=== PATIENT | female | born 1970 | race Caucasian/White ===

== ENCOUNTER 2016-11-03 21:47 | Emergency (ER) | payer BC ==
[~2016-11-03] VITALS: Ht 188 cm; Wt 102.5 kg
[~2016-11-03 21:47] MED LIST: ALPR0.5T PO; CITA20TA9 PO; CITA40TA12 PO; DOXY100C2 PO; IBUP-1007 PO; IPRA3AMP NEB; LISI-334 PO; PRED50TA PO; PROAIR HFA8.5 GM INH; PROAIR RESPICL90 MCG IH; PROM118S3 PO; PROVENTIL HFA6.7 GM IH
[2016-11-03 23:58] LABS: BASO % 0 % (0-3); EOS % 3 % (0-3); HEMATOCRIT 43.3 % (36.0-47.0); HEMOGLOBIN 14.5 g/dL (12.0-15.5); LYMPH # 2.4 x10^3/uL (1.0-4.8); LYMPH % 24 % (24-48); MEAN CORPUSCULAR HEMOGLOBIN 32 pg (25-35); MEAN CORPUSCULAR HGB CONC 34 g/dL (31-37); MEAN CORPUSCULAR VOLUME 95 fL (79-100); MONO % 10 % (0-9); NEUT % 63 % (31-73); PLATELET COUNT 386 x10^3/uL (140-400); RED BLOOD COUNT 4.55 x10^6/uL (3.50-5.40); RED CELL DISTRIBUTION WIDTH 13.8 % (11.5-14.5); WHITE BLOOD COUNT 10.2 x10^3/uL (4.0-11.0)
[2016-11-04] LABS: BILIRUBIN,URINE NEGATIVE (NEG); GLUCOSE,URINE NEGATIVE (NEG); NITRITE,URINE NEGATIVE (NEG); PH,URINE 7.5; PROTEIN,URINE NEGATIVE (NEG-TRACE); UROBILINOGEN,URINE 0.2 mg/dL (0.2 mg/dL)
[2016-11-04] MEDS ORDERED: FAMOTIDINE 20 MG/2 ML VIAL IVP ONE
[2016-11-04] MEDS ORDERED: ONDANSETRON PF 4 MG/2 ML VIAL. IV ONE
[2016-11-04] MEDS ORDERED: IV NORMAL SALINE 1000ML BAG 1,000 ML IV SCH
[2016-11-04] MEDS ORDERED: FENTANYL PF 100 MCG/2 ML VIAL. IV PRN
[2016-11-04 00:12] LABS: CALCIUM 9.1 mg/dL (8.5-10.1); CREATININE 0.6 mg/dL (0.6-1.0); GFR 107.2; POTASSIUM 3.1 mmol/L (3.5-5.1)
--- NOTE | 2016-11-04 00:16 | PHYS DOC ---
Past Medical History Past Medical History: Asthma, Bronchitis, Depression, Hypertension Past Surgical History: Hysterectomy Additional Past Surgical Histo: fibroid removed with hysterectomy Alcohol Use: Occasionally Drug Use: None Adult General Chief Complaint Chief Complaint: ABDOMINAL PAIN HPI HPI Patient is a 46 year old female who presents with complaint of left upper quadrant abdominal pain. Patient states that she has been noticing pain in her left upper quadrant for several months, however over the past 2 weeks the patient has been having worsening pain. Patient was seen through urgent care and had a CT scan done less than one week ago that included both IV and oral contrast. Patient was told that the CT scan did not show any remarkable findings and the patient's blood work also was unremarkable. Patient states that despite being treated with hydrocodone, her pain has remained persistent. The patient has history of hypertension but denies any other health problems. Patient states that her pain currently is 8 out of 10. Patient states that pain does worsen with eating. Patient states that she has been eating Tums to help with symptoms but states that this does not keep the pain away. Review of Systems Review of Systems Constitutional: Denies fever or chills [] Eyes: Denies change in visual acuity, redness, or eye pain [] HENT: Denies nasal congestion or sore throat [] Respiratory: Denies cough or shortness of breath [] Cardiovascular: No additional information not addressed in HPI [] GI: Abdominal pain, vomiting, denies bloody stools or diarrhea [] : Denies dysuria or hematuria [] Musculoskeletal: Denies back pain or joint pain [] Integument: Denies rash or skin lesions [] Neurologic: Denies headache, focal weakness or sensory changes [] Endocrine: Denies polyuria or polydipsia [] Current Medications Current Medications Current Medications Medications (Trade) Dose Ordered Sig/Yifan Start Time Stop Time Status Last Admin Dose Admin Famotidine (Pepcid) 20 mg 1X ONCE 11/04/16 00:00 11/04/16 00:01 DC 11/04/16 00:44 20 MG Fentanyl Citrate 50 mcg 50 mcg PRN Q15MIN PRN 11/04/16 00:00 11/04/16 23:59 11/04/16 00:43 50 MCG Ondansetron HCl (Zofran) 4 mg 1X ONCE 11/04/16 00:00 11/04/16 00:01 DC 11/04/16 00:44 4 MG Potassium Chloride (Klor-Con) 40 meq 1X ONCE 11/04/16 01:30 11/04/16 01:31 Sodium Chloride (Iv Sodium Chloride 0.9% 1000ml Bag) 1,000 ml @ 1,000 mls/hr Q1H 11/04/16 00:00 11/04/16 00:59 DC 11/04/16 00:43 1,000 MLS/HR Allergies Allergies Allergies Coded Allergies Type Severity Reaction Last Updated Verified codeine Allergy Severe Anaphylaxis 10/27/13 Yes iopanoic acid Allergy Severe Anaphylaxis 10/27/13 Yes verapamil Allergy Severe waddell 04/12/16 Yes bacitracin Allergy Intermediate Rash 04/12/16 Yes bacitracin zinc Allergy Intermediate Rash 04/12/16 Yes levofloxacin Allergy Intermediate 04/12/16 Yes neomycin sulfate Allergy Intermediate Rash 04/12/16 Yes polymyxin B Allergy Intermediate Rash 04/12/16 Yes sulfamethoxazole Allergy Intermediate rash 04/12/16 Yes trimethoprim Allergy Intermediate rash 04/12/16 Yes aspirin Allergy Mild pt states "It causes my blood not to thin out" 04/12/16 Yes Physical Exam Physical Exam Constitutional: Alert, afebrile, appears in mild to moderate discomfort. [] HENT: Normocephalic, atraumatic, bilateral external ears normal, oropharynx moist, no oral exudates, nose normal. [] Eyes: PERRLA, EOMI, conjunctiva normal, no discharge. [] Neck: Normal range of motion, no tenderness, supple, no stridor. [] Cardiovascular:Heart rate regular rhythm, no murmur [] Lungs & Thorax: Bilateral breath sounds clear to auscultation [] Abdomen: Bowel sounds normal, soft, left upper quadrant tenderness to palpation with guarding, no rebound tenderness, no masses, no pulsatile masses. [] Skin: Warm, dry, no erythema, no rash. [] Back: No tenderness, no CVA tenderness. [] Extremities: No tenderness, no cyanosis, no clubbing, ROM intact, no edema. [] Neurologic: Alert and oriented X 3, normal motor function, normal sensory function, no focal deficits noted. [] Current Patient Data Vital Signs Vital Signs Date Time Temp Pulse Resp B/P Pulse Ox O2 Delivery O2 Flow Rate FiO2 11/03/16 22:35 98.2 70 20 161/109 99 Room Air 98.2 Lab Values Laboratory Tests Test 11/03/16 23:15 White Blood Count 10.2x10^3/uL (4.0-11.0) Red Blood Count 4.55x10^6/uL (3.50-5.40) Hemoglobin 14.5g/dL (12.0-15.5) Hematocrit 43.3% (36.0-47.0) Mean Corpuscular Volume 95fL (79-100) Mean Corpuscular Hemoglobin 32pg (25-35) Mean Corpuscular Hemoglobin Concent 34g/dL (31-37) Red Cell Distribution Width 13.8% (11.5-14.5) Platelet Count 386x10^3/uL (140-400) Neutrophils (%) (Auto) 63% (31-73) Lymphocytes (%) (Auto) 24% (24-48) Monocytes (%) (Auto) 10% (0-9) H Eosinophils (%) (Auto) 3% (0-3) Basophils (%) (Auto) 0% (0-3) Neutrophils # (Auto) 6.4x10^3uL (1.8-7.7) Lymphocytes # (Auto) 2.4x10^3/uL (1.0-4.8) Monocytes # (Auto) 1.0x10^3/uL (0.0-1.1) Eosinophils # (Auto) 0.3x10^3/uL (0.0-0.7) Basophils # (Auto) 0.0x10^3/uL (0.0-0.2) Urine Collection Type Unknown Urine Color Yellow Urine Clarity Clear Urine pH 7.5 Urine Specific Remlap 1.010 Urine Protein Negativemg/dL (NEG-TRACE) Urine Glucose (UA) Negativemg/dL (NEG) Urine Ketones (Stick) Negativemg/dL (NEG) Urine Blood Negative (NEG) Urine Nitrite Negative (NEG) Urine Bilirubin Negative (NEG) Urine Urobilinogen Dipstick 0.2mg/dL (0.2 mg/dL) Urine Leukocyte Esterase Negative (NEG) Urine RBC 0/HPF (0-2) Urine WBC 0/HPF (0-4) Urine Squamous Epithelial Cells Few/LPF Urine Bacteria 0/HPF (0-FEW) Urine Mucus Slight/LPF Sodium Level 145mmol/L (136-145) Potassium Level 3.1mmol/L (3.5-5.1) L Chloride Level 106mmol/L (98-107) Carbon Dioxide Level 28mmol/L (21-32) Anion Gap 11 (6-14) Blood Urea Nitrogen 12mg/dL (7-20) Creatinine 0.6mg/dL (0.6-1.0) Estimated GFR (Cockcroft-Gault) 107.2 BUN/Creatinine Ratio 20 (6-20) Glucose Level 85mg/dL (70-99) Calcium Level 9.1mg/dL (8.5-10.1) Total Bilirubin 0.5mg/dL (0.2-1.0) Aspartate Amino Transferase (AST) 16U/L (15-37) Alanine Aminotransferase (ALT) 20U/L (14-59) Alkaline Phosphatase 56U/L (46-116) Total Protein 6.8g/dL (6.4-8.2) Albumin 3.8g/dL (3.4-5.0) Albumin/Globulin Ratio 1.3 (1.0-1.7) Lipase 86U/L (73-393) Laboratory Tests 11/03/16 23:15 Laboratory Tests 11/03/16 23:15 EKG EKG Not performed [] Radiology/Procedures Radiology/Procedures Two-view abdominal series interpreted by me: Nonobstructive bowel gas pattern, no free air under the diaphragm [] Course & Med Decision Making Course & Med Decision Making Pertinent Labs and Imaging studies reviewed. (See chart for details) Patient was given IV fluids, fentanyl, and Zofran in the emergency department. On reevaluation, patient's symptoms have improved. Lab work is unremarkable. I suspect that the source of the patient's pain is likely within the stomach and/ or the duodenum. This will require further evaluation by gastroenterology. I have therefore referred the patient to Dr. See for outpatient follow-up as patient may need an EGD scheduled for further evaluation of her pain. Patient was found to have low potassium levels which were replaced in the emergency department with oral potassium. Advised return emergency department for any worsening symptoms. Patient voiced understanding and in agreement with treatment plan. Dragon Disclaimer Dragon Disclaimer This electronic medical record was generated, in whole or in part, using a voice recognition dictation system. Departure Departure Impression: Primary Impression: Abdominal pain Disposition: HOME, SELF-CARE Condition: IMPROVED Referrals: NO PCP (PCP) ELVIRA SEE MD Patient Instructions: Abdominal Pain Additional Instructions: Follow-up with Dr. See in one week for continued evaluation of your abdominal pain. You may need to have an EGD performed to figure out the source of your pain. Return to the emergency department for any worsening symptoms. Scripts Hydrocodone/Apap 5-325 ([place] 5-325 Tablet)1 Each Tablet1-2 Tab PO Q4-6HRS PRN PAIN #20 TAB Prov:PARKER MACIAS MD 11/04/16 Ondansetron (Zofran Odt)4 Mg Tab.rapdis1 Tab SL Q8HRS PRN NAUSEA/VOMITING #15 TAB Prov:PARKER MACIAS MD 11/04/16 Famotidine (Pepcid)20 Mg [id number] Mg PO BID #30 TAB Prov:PARKER MACIAS MD 11/04/16 Problem Qualifiers Primary Impression: Abdominal pain Abdominal location: left upper quadrant Qualified Code: R10.12 - Left upper quadrant pain PARKER MACIAS MD Nov 04, 2016 00:16
[2016-11-04 00:18] LABS: ALBUMIN 3.8 g/dL (3.4-5.0); ALBUMIN/GLOBULIN RATIO 1.3 (1.0-1.7); TOTAL BILIRUBIN 0.5 mg/dL (0.2-1.0); TOTAL PROTEIN 6.8 g/dL (6.4-8.2)
[2016-11-04 00:24] LABS: BACTERIA,URINE 0 /HPF (0-FEW); RBC,URINE 0 /HPF (0-2); SQUAMOUS EPITHELIAL CELL,UR FEW /LPF; WBC,URINE 0 /HPF (0-4)
[2016-11-04 01:15] VITALS: BP 177/97
[2016-11-04] MEDS ORDERED: HYDR-971 PO (01:15)
[2016-11-04] MEDS ORDERED: FAMO-63 PO (01:15)
[2016-11-04] MEDS ORDERED: ONDA4TAB10 SL (01:15)
[2016-11-04] MEDS ORDERED: POTASSIUM CHLORIDE 20 MEQ TABLET.ER. PO ONE (01:30)
--- NOTE | 2016-11-04 07:18 | RAD ---
Abdomen, 2 views, 11/04/2016: History: Left-sided pain Gas is present in scattered loops of bowel in a nonspecific pattern. No free air seen in the abdomen. There is no evidence of organomegaly or abnormal abdominal calcification. IMPRESSION: No acute abdominal abnormality is detected.
== END 2016-11-04 01:54 | disposition home or self-care (01) ==
LOC: ER 21:47
DX: R10.12 Left upper quadrant pain (principal); F32.9 Major depressive disorder, single episode, unspecified; I10 Essential (primary) hypertension; Z90.710 Acquired absence of both cervix and uterus; J45.909 Unspecified asthma, uncomplicated; Z88.5 Allergy status to narcotic agent; Z88.1 Allergy status to other antibiotic agents; Z88.6 Allergy status to analgesic agent; Z88.8 Allergy status to other drugs, medicaments and biological substances
CPT/HCPCS: 36415; 74020; 80053; 81001; 83690; 85027; 96361; 96374; 96375; 99285; J2405; J3010; J7030; S0028

== ENCOUNTER 2016-12-20 23:21 | Emergency (ER) | payer BC ==
[~2016-12-20 23:21] MED LIST changes: +FAMO-63 PO; +HYDR-971 PO; +ONDA4TAB10 SL
== END 2016-12-21 00:29 | disposition left against medical advice (07) ==
LOC: ER 23:21
DX: R51 Headache (principal); M54.2 Cervicalgia; Z53.21 Procedure and treatment not carried out due to patient leaving prior to being seen by health care provider; W10.9XXA Fall (on) (from) unspecified stairs and steps, initial encounter; Y93.89 Activity, other specified; Y92.89 Other specified places as the place of occurrence of the external cause; Y99.8 Other external cause status

== ENCOUNTER 2016-12-26 17:16 | Emergency (ER) | payer BC ==
[~2016-12-26] VITALS: Ht 188 cm; Wt 102.5 kg
[2016-12-26 17:18] VITALS: BP 161/84
[2016-12-26] MEDS ORDERED: PRED20TA PO (17:43)
[2016-12-26] MEDS ORDERED: AZIT250T PO (17:43)
--- NOTE | 2016-12-26 17:44 | PHYS DOC ---
Past Medical History Past Medical History: Asthma, Bronchitis, Depression, Hypertension Past Surgical History: Hysterectomy Additional Past Surgical Histo: fibroid removed with hysterectomy Alcohol Use: Occasionally Drug Use: None Adult General Chief Complaint Chief Complaint: ASTHMA HPI HPI Patient is a 46 year old presents emergency department stating that she's had one week history of asthma related issues. She states that she was seen by her primary care physician was placed on prednisone 10 mg. She states that she has 2 days left and is not getting any better. She states normally she is on a tapered dose although this time he only provided her with 10 mg. Patient denies any fever, chills or any nausea or vomiting. She states that she has respiratory treatments at home as scheduled. Review of Systems Review of Systems Constitutional: Denies fever or chills [] Eyes: Denies change in visual acuity, redness, or eye pain [] HENT: Denies nasal congestion or sore throat [] Respiratory: Cough shortness of air with wheezing Cardiovascular: No additional information not addressed in HPI [] GI: Denies abdominal pain, nausea, vomiting, bloody stools or diarrhea [] : Denies dysuria or hematuria [] Musculoskeletal: Denies back pain or joint pain [] Integument: Denies rash or skin lesions [] Neurologic: Denies headache, focal weakness or sensory changes [] Current Medications Current Medications Current Medications Medications (Trade) Dose Ordered Sig/Yifan Start Time Stop Time Status Last Admin Dose Admin Albuterol/ Ipratropium (Duoneb) 3 ml 1X ONCE 12/26/16 17:45 12/26/16 17:46 DC 12/26/16 17:47 3 ML Methylprednisolone Sodium Succinate (Solu-Medrol 125mg Vial) 125 mg 1X ONCE 12/26/16 17:45 12/26/16 17:46 DC 12/26/16 17:47 125 MG Allergies Allergies Allergies Coded Allergies Type Severity Reaction Last Updated Verified codeine Allergy Severe Anaphylaxis 10/27/13 Yes iopanoic acid Allergy Severe Anaphylaxis 10/27/13 Yes verapamil Allergy Severe waddell 04/12/16 Yes bacitracin Allergy Intermediate Rash 04/12/16 Yes bacitracin zinc Allergy Intermediate Rash 04/12/16 Yes levofloxacin Allergy Intermediate 04/12/16 Yes neomycin sulfate Allergy Intermediate Rash 04/12/16 Yes polymyxin B Allergy Intermediate Rash 04/12/16 Yes sulfamethoxazole Allergy Intermediate rash 04/12/16 Yes trimethoprim Allergy Intermediate rash 04/12/16 Yes aspirin Allergy Mild pt states "It causes my blood not to thin out" 04/12/16 Yes Physical Exam Physical Exam Constitutional: Well developed, well nourished, no acute distress, non-toxic appearance. [] HENT: Normocephalic, atraumatic, bilateral external ears normal, oropharynx moist, no oral exudates, nose normal. [] Eyes: PERRLA, EOMI, conjunctiva normal, no discharge. [] Neck: Normal range of motion, no tenderness, supple, no stridor. [] Cardiovascular:Heart rate regular rhythm, no murmur [] Lungs & Thorax: Bilateral breath sounds wheezes noted throughout. Skin: Warm, dry, no erythema, no rash. [] Back: No tenderness Extremities: No tenderness, no cyanosis, no clubbing, ROM intact, no edema. [] Neurologic: Alert and oriented X 3, normal motor function, normal sensory function, no focal deficits noted. [] Psychologic: Affect normal, judgement normal, mood normal. [] Current Patient Data Vital Signs Vital Signs Date Time Temp Pulse Resp B/P Pulse Ox O2 Delivery O2 Flow Rate FiO2 12/26/16 17:45 Room Air 12/26/16 17:18 97.9 95 24 97 97.9 EKG EKG [] Radiology/Procedures Radiology/Procedures [] Course & Med Decision Making Course & Med Decision Making Pertinent Labs and Imaging studies reviewed. (See chart for details) Patient was provided with a DuoNeb treatment here in the emergency department. Her breath sounds are clear at this time. She was also provided with a Solu- Medrol injection. She'll be discharged with prednisone 40 mg daily for the next 7 days. Recommended her to continue using her respiratory treatments at home. Also recommended her to follow up with her primary care physician. Signs and symptoms to return back to emergency department has been provided. Patient will be discharged home in stable condition. Dragon Disclaimer Dragon Disclaimer This electronic medical record was generated, in whole or in part, using a voice recognition dictation system. Departure Departure Impression: Primary Impression: Asthma exacerbation Disposition: HOME, SELF-CARE Condition: STABLE Referrals: NO PCP (PCP) Patient Instructions: Asthma, Adult, [id number], Smoking Cessation, Tips For Success Additional Instructions: You have been provided with a Solu-Medrol injection as well as a DuoNeb treatment here. Medications as prescribed. Continue your respiratory treatments at home. Stop smoking. Drink plenty of fluids. Follow-up with your primary care physician next 3-5 days. Return back to emergency prior signs symptoms of become worse. Scripts Azithromycin (Zithromax)250 Mg [id number] Mg PO DAILY ANTI-BIOTIC #6 TAB take 2 tablets today then 1 tablet daily until completed Prov:SOLOMON PLUMMER APRN 12/26/16 Prednisone 20 Mg [id number] Mg PO DAILY #14 TAB Prov:SOLOMON PLUMMER APRN 12/26/16 SOLOMON PLUMMER APRN Dec 26, 2016 17:44
[2016-12-26] MEDS ORDERED: IPRATRPIUM/ALBUTEROL 0.5/2.5MG 3 ML NEBU. NEB ONE (17:45)
[2016-12-26] MEDS ORDERED: methylPREDNISolone SOD SUCC PF 125 MG/2 ML VIAL. IM ONE (17:45)
== END 2016-12-26 18:07 | disposition home or self-care (01) ==
LOC: ER 17:16
DX: J45.901 Unspecified asthma with (acute) exacerbation (principal); I10 Essential (primary) hypertension; F32.9 Major depressive disorder, single episode, unspecified; Z88.6 Allergy status to analgesic agent; Z88.1 Allergy status to other antibiotic agents; Z88.5 Allergy status to narcotic agent; Z88.2 Allergy status to sulfonamides; Z90.710 Acquired absence of both cervix and uterus
CPT/HCPCS: 94250; 94640; 96372; 99283; J2930; J7620; 99284-25

== ENCOUNTER 2017-02-24 22:59 | Emergency (ER) | payer BC ==
[~2017-02-24] VITALS: Ht 188 cm; Wt 93.0 kg
[~2017-02-24 22:59] MED LIST changes: +AZIT250T PO; +PRED20TA PO
[2017-02-24 23:11] VITALS: BP 185/99
[2017-02-24] MEDS ORDERED: ALBUTEROL SULFATE 2.5 MG/3 ML NEBU. NEB ONE (23:15)
[2017-02-24] MEDS ORDERED: predniSONE 20 MG TABLET PO ONE (23:15)
[2017-02-24] MEDS ORDERED: IPRATRPIUM/ALBUTEROL 0.5/2.5MG 3 ML NEBU. NEB ONE (23:15)
[2017-02-24] MEDS ORDERED: PRED-220 PO (23:41)
[2017-02-24] MEDS ORDERED: IPRA3AMP NEB (23:41)
--- NOTE | 2017-02-24 23:41 | PHYS DOC ---
Past Medical History Past Medical History: Asthma, Bronchitis, Depression, Hypertension Past Surgical History: Hysterectomy Additional Past Surgical Histo: fibroid removed with hysterectomy Alcohol Use: Occasionally Drug Use: None Adult General Chief Complaint Chief Complaint: ASTHMA HPI HPI Patient is a 46 year old female presenting to the emergency department for evaluation of shortness of breath that has been going on for the past 4 days. Patient says that she has asthma and has been using her inhaler and nebulizer 2- 3 times a day but it has not been helping. She says that she has had wheezing in addition to nonproductive cough sinus congestion and postnasal drip. She denies any fevers chills nausea vomiting or other systemic symptoms. Patient says that she has required admission to the hospital before but never been intubated or in the ICU. She says that she continues to smoke cigarettes despite her feeling short of breath and having an asthma flare. She is in no obvious distress and Her oxygen saturation is 95% on room air. Review of Systems Review of Systems Constitutional: Denies fever or chills [] HENT: + nasal congestion. No sore throat [] Respiratory: + cough and shortness of breath [] Cardiovascular: No additional information not addressed in HPI [] GI: Denies abdominal pain, nausea, vomiting, bloody stools or diarrhea [] Current Medications Current Medications Current Medications Medications (Trade) Dose Ordered Sig/Yifan Start Time Stop Time Status Last Admin Dose Admin Albuterol Sulfate (Ventolin Neb Soln) 5 mg 1X ONCE 02/24/17 23:15 02/24/17 23:16 DC 02/24/17 23:23 5 MG Albuterol/ Ipratropium (Duoneb) 3 ml 1X ONCE 02/24/17 23:15 02/24/17 23:16 DC 02/24/17 23:23 3 ML Prednisone (Prednisone) 60 mg 1X ONCE 02/24/17 23:15 02/24/17 23:16 DC Allergies Allergies Allergies Coded Allergies Type Severity Reaction Last Updated Verified codeine Allergy Severe Anaphylaxis 10/27/13 Yes iopanoic acid Allergy Severe Anaphylaxis 10/27/13 Yes verapamil Allergy Severe waddell 04/12/16 Yes bacitracin Allergy Intermediate Rash 04/12/16 Yes bacitracin zinc Allergy Intermediate Rash 04/12/16 Yes levofloxacin Allergy Intermediate 04/12/16 Yes neomycin sulfate Allergy Intermediate Rash 04/12/16 Yes polymyxin B Allergy Intermediate Rash 04/12/16 Yes sulfamethoxazole Allergy Intermediate rash 04/12/16 Yes trimethoprim Allergy Intermediate rash 04/12/16 Yes aspirin Allergy Mild pt states "It causes my blood not to thin out" 04/12/16 Yes Physical Exam Physical Exam Constitutional: Well developed, well nourished, no acute distress, non-toxic appearance. [] HENT: Normocephalic, atraumatic, bilateral external ears normal, oropharynx moist, no oral exudates, nose normal. [] Cardiovascular:Heart rate regular rhythm, no murmur [] Lungs & Thorax: Bilateral breath sounds diminished with inspiratory and expiratory wheezing Skin: Warm, dry, no erythema, no rash. [] Extremities: no edema. [] Current Patient Data Vital Signs Vital Signs Date Time Temp Pulse Resp B/P (MAP) Pulse Ox O2 Delivery O2 Flow Rate FiO2 02/24/17 23:31 97 Room Air 02/24/17 23:11 98.4 100 20 98.4 EKG EKG [] Radiology/Procedures Radiology/Procedures [] Course & Med Decision Making Course & Med Decision Making Patient with moderate acute asthma exacerbation. She was given multiple breathing treatments including a DuoNeb and 5 mg of albuterol in addition to a dose of prednisone. Her vital signs including HerOption saturation continue be normal and aeration of her lungs improved significantly with few scattered wheezes persisting. Patient feels much better and is asking to go home so she will be discharged with a steroid taper in addition to instructions to take antihistamines for her allergy symptoms. Patient aware and agreeable with plan for discharge and verbalized understanding of the need for short-term follow-up and strict ER return precautions discussed including worsening pain shortness of breath or other general concerns. Dragon Disclaimer Dragon Disclaimer This electronic medical record was generated, in whole or in part, using a voice recognition dictation system. Departure Departure Impression: Primary Impression: Asthma exacerbation Disposition: 01 HOME, SELF-CARE Condition: GOOD Referrals: LYNDA LARRY (PCP) Patient Instructions: Asthma, F.L.A.R.E. Additional Instructions: Use year albuterol every 4 hours and more often if needed. You have to stop smoking otherwise he will not get any better. Take Benadryl or other over-the- counter antihistamines. Follow with your primary care provider later this week and come back to the ER sooner with any new or worsening pain shortness of breath or other general concerns. Scripts Prednisone (PREDNISONE) 10 Mg Tablet 10 MG PO DAILY for 10 Days, #34 TAB TAKE 6 TABS FOR 2 DAYS THEN TAKE 5 TABS FOR 2 DAYS THEN TAKE 3 TABS FOR 2 DAYS THEN TAKE 2 TABS FOR 2 DAYS THEN TAKE 1 TAB FOR 2 DAYS. Prov: TAMMY MOYER DO 02/24/17 Ipratropium/Albuterol Sulfate (DUONEB 0.5-3(2.5) MG/3 ML) 3 Ml Ampul.neb 3 ML NEB QID, #20 EACH Prov: TAMMY MOYER DO 02/24/17 TAMMY MOYER DO Feb 24, 2017 23:41
== END 2017-02-24 23:56 | disposition home or self-care (01) ==
LOC: ER 22:59
DX: J45.901 Unspecified asthma with (acute) exacerbation (principal); I10 Essential (primary) hypertension; F32.9 Major depressive disorder, single episode, unspecified; Z90.710 Acquired absence of both cervix and uterus; Z88.5 Allergy status to narcotic agent; Z88.2 Allergy status to sulfonamides; Z88.6 Allergy status to analgesic agent; Z88.1 Allergy status to other antibiotic agents
CPT/HCPCS: 94250; 94640; 99284; J7512; J7620

== ENCOUNTER 2017-03-15 14:21 | Emergency (ER) | payer BC ==
[~2017-03-15] VITALS: Ht 188 cm; Wt 94.6 kg
[~2017-03-15 14:21] MED LIST changes: +PRED-220 PO
[2017-03-15] MEDS ORDERED: IPRATRPIUM/ALBUTEROL 0.5/2.5MG 3 ML NEBU. NEB ONE (15:00)
[2017-03-15] MEDS ORDERED: DEXAMETHASONE SOD PHOS 4 MG/ML VIAL IM ONE (15:00)
[2017-03-15 15:15] LABS: POTASSIUM ISTAT 6.2 mmol/L (3.5-5.0)
[2017-03-15] MEDS ORDERED: DEXAMETHASONE SOD PHOS 4 MG/ML VIAL IV ONE (15:15)
[2017-03-15] MEDS ORDERED: DEXAMETHASONE SOD PHOS 20 MG/5 ML VIAL. ONE (15:19)
--- NOTE | 2017-03-15 15:24 | PHYS DOC ---
Past Medical History Past Medical History: Asthma, Bronchitis, Depression, Hypertension Past Surgical History: Hysterectomy Additional Past Surgical Histo: fibroid removed with hysterectomy Alcohol Use: Occasionally Drug Use: None Adult General Chief Complaint Chief Complaint: HYPERTENSION HPI HPI Patient is a 46 year old female who presents with in acute asthma exacerbation. Patient was seen at the urgent care for her asthma and they noticed that she had elevated blood pressures 170/100 therefore they told her that they could not treat her and needed her to go the emergency room to have her blood pressure treated. Patient received no treatment for her asthma at the urgent care. Patient states she is asymptomatic from her elevated blood pressures and usually has elevated blood pressures despite taking lisinopril 10 mg at nighttime. Patient denies any headache or vision changes. Patient denies any chest pain or shortness of breath. Patient complains of wheezing. Patient denies any nausea/vomiting/diarrhea. Patient denies any fevers and has no other complaints. Pertinent exam findings: Wheezing bilaterally ED course: Patient was seen and examined, chest x-ray, EKG, i-STAT, breathing treatments and modems Decadron were ordered 1516: EKG shows normal sinus rhythm rate of 75 no STEMI 1644: Patient is feeling much better and is ready to go home. Patient's blood pressure is 175/90 and she is asymptomatic and recommended she follow up with PCP for further blood pressure management. Patient is steroid taper and more medications for nebulizer. Pertinent results: Repeat potassium was 4.0 first blood was hemolyzed Chest x-ray NAD MDM: After reviewing the chart, CC/HPI/PMH, physical exam, [lab results], [ radiological results], I do not believe the patient has a severe a story infection warranting further workup and/or admission at this time. Reexamination patient is feeling much better and is ready go home. Patient states she was has high blood pressure is asymptomatic from it. Recommended she follow up with PCP for further evaluation and management for her blood pressure. Patient is stable for discharge. Additional verbal discharge instructions were provided to the patient and that if symptoms get worse or any new symptoms arise that are worrisome to the patient she is to return to the emergency room immediately Review of Systems Review of Systems GEN: Denies fevers, chills, sweats HEENT: Denies blurred vision, sore throat CV: Denies chest pain RESP: Wheezing GI: Denies n/v/d NEURO: Denies confusion, dizziness MSK: Denies weakness, joint pain/swelling Current Medications Current Medications Current Medications Medications (Trade) Dose Ordered Sig/Yifan Start Time Stop Time Status Last Admin Dose Admin Albuterol/ Ipratropium (Duoneb) 3 ml 1X ONCE 03/15/17 15:00 03/15/17 15:01 DC 03/15/17 15:32 3 ML Dexamethasone Sodium Phosphate (Decadron) 20 mg STK-MED ONCE 03/15/17 15:19 03/15/17 15:20 DC Allergies Allergies Allergies Coded Allergies Type Severity Reaction Last Updated Verified codeine Allergy Severe Anaphylaxis 10/27/13 Yes iopanoic acid Allergy Severe Anaphylaxis 10/27/13 Yes verapamil Allergy Severe waddell 04/12/16 Yes bacitracin Allergy Intermediate Rash 04/12/16 Yes bacitracin zinc Allergy Intermediate Rash 04/12/16 Yes levofloxacin Allergy Intermediate 04/12/16 Yes neomycin sulfate Allergy Intermediate Rash 04/12/16 Yes polymyxin B Allergy Intermediate Rash 04/12/16 Yes sulfamethoxazole Allergy Intermediate rash 04/12/16 Yes trimethoprim Allergy Intermediate rash 04/12/16 Yes aspirin Allergy Mild pt states "It causes my blood not to thin out" 04/12/16 Yes Physical Exam Physical Exam GEN.: No apparent distress. Alert and oriented. HEENT: Head is normocephalic, atraumatic NECK: Supple. LUNGS: Wheezing bilaterally. HEART: RRR, S1, S2 present. Peripheral pulses intact ABDOMEN: Soft, nontender. Positive bowel sounds. EXTREMITIES: Without any cyanosis. NEUROLOGIC: Normal speech, normal tone PSYCHIATRIC: Normal affect, normal mood. SKIN: No ulcerations Current Patient Data Vital Signs Vital Signs Date Time Temp Pulse Resp B/P (MAP) Pulse Ox O2 Delivery O2 Flow Rate FiO2 03/15/17 15:32 97 Room Air 03/15/17 14:35 98.5 78 15 165/92 (116) 98.5 Lab Values Laboratory Tests Test 03/15/17 15:00 03/15/17 15:10 Sodium Level 141 mmol/L (136-145) Potassium Level 4.0 mmol/L (3.5-5.1) Chloride Level 105 mmol/L (98-107) Carbon Dioxide Level 29 mmol/L (21-32) Anion Gap 7 (6-14) 13 mmol/L (6-14) Blood Urea Nitrogen 9 mg/dL (7-20) Creatinine 0.6 mg/dL (0.6-1.0) Estimated GFR (Cockcroft-Gault) 107.2 BUN/Creatinine Ratio 15 (6-20) Glucose Level 101 mg/dL (70-99) H 100 mg/dL (70-99) H Calcium Level 8.7 mg/dL (8.5-10.1) Total Bilirubin 0.7 mg/dL (0.2-1.0) Aspartate Amino Transferase (AST) 16 U/L (15-37) Alanine Aminotransferase (ALT) 22 U/L (14-59) Alkaline Phosphatase 74 U/L (46-116) Total Protein 6.8 g/dL (6.4-8.2) Albumin 3.6 g/dL (3.4-5.0) Albumin/Globulin Ratio 1.1 (1.0-1.7) POC Hemoglobin 14.3 g/dL (12-15) POC Hematocrit 42 % (36-40) H POC Sodium 138 mmol/L (135-145) POC Potassium 6.2 mmol/L (3.5-5.0) H POC Chloride 105 mmol/L (98-110) POC Total CO2 27 mmol/L (23-32) POC Blood Urea Nitrogen 13 mg/dL (8-26) POC Creatinine 0.5 mg/dL (0.5-1.4) POC Ionized Calcium (Sean) 1.02 mmol/L (1.13-1.32) L Laboratory Tests 03/15/17 15:00 03/15/17 15:10 EKG EKG 1516: EKG shows normal sinus rhythm rate of 75 no STEMI [] Radiology/Procedures Radiology/Procedures [] Course & Med Decision Making Course & Med Decision Making Pertinent Labs and Imaging studies reviewed. (See chart for details) [] Dragon Disclaimer Dragon Disclaimer This electronic medical record was generated, in whole or in part, using a voice recognition dictation system. Departure Departure Impression: Primary Impression: Asthma exacerbation Additional Impression: Essential hypertension Disposition: 01 HOME, SELF-CARE Condition: IMPROVED Referrals: LYNDA LARRY (PCP) Patient Instructions: Asthma, Adult Additional Instructions: Please follow up with her family doctor within one to 2 days for further evaluation and management of your blood pressure Scripts Ipratropium/Albuterol Sulfate (DUONEB 0.5-3(2.5) MG/3 ML) 3 Ml Ampul.neb 3 ML NEB QID for 30 Days, #120 EACH Prov: HALEIGH RAMIREZ DO 03/15/17 Methylprednisolone (MEDROL) 4 Mg Tab.ds.pk 1 PKG PO UD, #1 PKG Prov: HALEIGH RAMIREZ DO 03/15/17 Problem Qualifiers HALEIGH RAMIREZ DO Mar 15, 2017 15:24
--- NOTE | 2017-03-15 15:25 | RAD ---
Chest, 2 views, 03/15/2017: History: Asthma Comparison is made to a study from 06/29/2016. The heart size and pulmonary vascularity are normal. No pulmonary infiltrates are seen. There is no evidence of pleural fluid. IMPRESSION: No acute cardiopulmonary abnormality is detected.
[2017-03-15 15:53] LABS: CALCIUM 8.7 mg/dL (8.5-10.1); CREATININE 0.6 mg/dL (0.6-1.0); GFR 107.2
[2017-03-15 15:58] LABS: ALBUMIN 3.6 g/dL (3.4-5.0); ALBUMIN/GLOBULIN RATIO 1.1 (1.0-1.7); TOTAL BILIRUBIN 0.7 mg/dL (0.2-1.0); TOTAL PROTEIN 6.8 g/dL (6.4-8.2)
[2017-03-15 16:30] VITALS: BP 175/90
[2017-03-15] MEDS ORDERED: IPRA3AMP NEB (16:55)
[2017-03-15] MEDS ORDERED: METH4TAB2 PO (16:55)
--- NOTE | 2017-03-16 06:58 | EKG ---
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
== END 2017-03-15 17:01 | disposition home or self-care (01) ==
LOC: ER 14:21
DX: J45.901 Unspecified asthma with (acute) exacerbation (principal); I10 Essential (primary) hypertension; F32.9 Major depressive disorder, single episode, unspecified; Z90.710 Acquired absence of both cervix and uterus; Z88.6 Allergy status to analgesic agent; Z88.1 Allergy status to other antibiotic agents; Z88.8 Allergy status to other drugs, medicaments and biological substances; Z88.5 Allergy status to narcotic agent; Z88.2 Allergy status to sulfonamides
CPT/HCPCS: 36415; 71020; 80047; 80053; 93005; 94250; 94640; 96374; 99285; J1100; J7620

== ENCOUNTER 2017-04-22 14:28 | Emergency (ER) | payer BC ==
[~2017-04-22] VITALS: Ht 188 cm; Wt 88.5 kg
[~2017-04-22 14:28] MED LIST changes: +METH4TAB2 PO
[2017-04-22 15:04] VITALS: BP 149/95
[2017-04-22] MEDS ORDERED: CYCLOBENZAPRINE 10 MG TABLET. PO ONE (15:45)
[2017-04-22] MEDS ORDERED: HYDROcodone/APAP 5/325MG 1 TAB TABLET PO ONE (15:45)
[2017-04-22] MEDS ORDERED: HYDR-2762 PO (15:48)
[2017-04-22] MEDS ORDERED: CYCL10TA2 PO (15:48)
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
== END 2017-04-22 15:55 | disposition home or self-care (01) ==
LOC: ER 14:28
DX: M54.9 Dorsalgia, unspecified (principal); I10 Essential (primary) hypertension; J45.909 Unspecified asthma, uncomplicated; Z88.6 Allergy status to analgesic agent; Z88.1 Allergy status to other antibiotic agents; Z88.5 Allergy status to narcotic agent; Z88.8 Allergy status to other drugs, medicaments and biological substances
CPT/HCPCS: 99283

== ENCOUNTER 2017-05-14 15:42 | Emergency (ER) | payer BC ==
[~2017-05-14 15:42] MED LIST changes: +CYCL10TA2 PO; +HYDR-2762 PO
[2017-05-14 16:05] VITALS: BP 164/95
[2017-05-14] MEDS ORDERED: KETOROLAC TROMETHAMINE 60 MG/2 ML INJ. IM ONE (16:15)
[2017-05-14] MEDS ORDERED: TRAM50TA PO (16:27)
[2017-05-14] MEDS ORDERED: NAPR500T PO (16:27)
--- NOTE | 2017-05-14 16:28 | PHYS DOC ---
Past Medical History Past Medical History: Asthma, Bronchitis, Depression, Hypertension Past Surgical History: Hysterectomy Additional Past Surgical Histo: fibroid removed with hysterectomy Alcohol Use: Occasionally Drug Use: None Adult General Chief Complaint Chief Complaint: SHOULDER INJURY HPI HPI Patient is a 46 year old female presents to the emergency department with complaints of left shoulder pain. She states that 2 days ago she was sitting in a chair when she reached for her grandchild and fell out of the chair landing on the left upper extremity. She states the left arm was tucked into her side when she fell. She complains of pain in the proximal humerus. She has no complaints of loss of range of motion. Review of Systems Review of Systems Constitutional: Denies fever or chills [] Eyes: Denies change in visual acuity, redness, or eye pain [] HENT: Denies nasal congestion or sore throat [] Respiratory: Denies cough or shortness of breath [] Cardiovascular: No additional information not addressed in HPI [] GI: Denies abdominal pain, nausea, vomiting, bloody stools or diarrhea [] : Denies dysuria or hematuria [] Musculoskeletal: Left shoulder pain Integument: Denies rash or skin lesions [] Neurologic: Denies headache, focal weakness or sensory changes [] Endocrine: Denies polyuria or polydipsia [] Current Medications Current Medications Current Medications Medications (Trade) Dose Ordered Sig/Yifan Start Time Stop Time Status Last Admin Dose Admin Ketorolac Tromethamine (Toradol Im) 60 mg 1X ONCE 05/14/17 16:15 05/14/17 16:16 DC Allergies Allergies Allergies Coded Allergies Type Severity Reaction Last Updated Verified codeine Allergy Severe Anaphylaxis 10/27/13 Yes iopanoic acid Allergy Severe Anaphylaxis 10/27/13 Yes verapamil Allergy Severe waddell 04/12/16 Yes bacitracin Allergy Intermediate Rash 04/12/16 Yes bacitracin zinc Allergy Intermediate Rash 04/12/16 Yes levofloxacin Allergy Intermediate 04/12/16 Yes neomycin sulfate Allergy Intermediate Rash 04/12/16 Yes polymyxin B Allergy Intermediate Rash 04/12/16 Yes sulfamethoxazole Allergy Intermediate rash 04/12/16 Yes trimethoprim Allergy Intermediate rash 04/12/16 Yes aspirin Allergy Mild pt states "It causes my blood not to thin out" 04/12/16 Yes Physical Exam Physical Exam Constitutional: Well developed, well nourished, no acute distress, non-toxic appearance. [] Neck: Normal range of motion, no paracervical or midline tenderness, supple, no stridor. [] Cardiovascular:Heart rate regular rhythm, no murmur [] Lungs & Thorax: Bilateral breath sounds clear to auscultation [] Skin: Warm, dry, no erythema, no rash, no ecchymosis [] Back: No thoracic or lumbar tenderness, no midline or paraspinous tenderness, no CVA tenderness. [] Extremities: Left upper extremity, left clavicle exam unremarkable, left shoulder without tenderness at the AC joint, she complains of mild tenderness over the deltoid muscle. She has no bony tenderness on exam. She has active and passive range of motion without difficulty without apparent increase in pain. The left elbow exam is unremarkable. Neurovascular intact distally. Neurologic: Alert and oriented X 3, normal motor function, normal sensory function, no focal deficits noted. [] Psychologic: Affect normal, judgement normal, mood normal. [] EKG EKG [] Radiology/Procedures Radiology/Procedures Left shoulder x-ray, two-view, no acute changes Patient received 60 mg IM in the emergency department for relief of her discomfort.[] She was placed in a sling to wear for comfort. Course & Med Decision Making Course & Med Decision Making Pertinent Labs and Imaging studies reviewed. (See chart for details) [] Dragon Disclaimer Dragon Disclaimer This electronic medical record was generated, in whole or in part, using a voice recognition dictation system. Departure Departure Impression: Primary Impression: Shoulder pain, left Disposition: 01 HOME, SELF-CARE Condition: STABLE Referrals: NO PCP (PCP) [facility] Patient Instructions: Shoulder Pain Scripts Tramadol Hcl (TRAMADOL HCL) 50 Mg Tablet 50 MG PO Q6HRS Y for PAIN, #12 TAB 0 Refills Prov: YOSVANY PAREDES APRN 05/14/17 Naproxen (NAPROSYN) 500 Mg Tablet 500 MG PO BID Y for PAIN, #20 TAB Prov: YOSVANY PAREDES APRN 05/14/17 Problem Qualifiers Primary Impression: Shoulder pain, left Chronicity: acute Qualified Codes: M25.512 - Pain in left shoulder YOSVANY PAREDES APRN May 14, 2017 16:28
--- NOTE | 2017-05-14 16:29 | RAD ---
Three-view left shoulder radiographs 05/14/2017 Clinical history: Patient fell 2 days ago with left shoulder pain. AP internal and external rotation and transscapular digital radiographs of the left shoulder were obtained. No fracture or dislocation of the left shoulder is seen. Mild degenerative changes are seen involving the left AC joint and left glenohumeral joint. Impression: No fracture or dislocation of the left shoulder is seen.
== END 2017-05-14 16:35 | disposition home or self-care (01) ==
LOC: ER 15:42
DX: M25.512 Pain in left shoulder (principal); J45.909 Unspecified asthma, uncomplicated; F32.9 Major depressive disorder, single episode, unspecified; I10 Essential (primary) hypertension; Z90.710 Acquired absence of both cervix and uterus; Z88.5 Allergy status to narcotic agent; Z88.1 Allergy status to other antibiotic agents; Z88.2 Allergy status to sulfonamides; Z88.6 Allergy status to analgesic agent; Z88.8 Allergy status to other drugs, medicaments and biological substances; W07.XXXA Fall from chair, initial encounter; Y93.89 Activity, other specified; Y92.89 Other specified places as the place of occurrence of the external cause; Y99.8 Other external cause status
CPT/HCPCS: 73030; 96372; 99284; J1885

== ENCOUNTER 2017-09-08 16:25 | Emergency (ER) | payer BC ==
[~2017-09-08] VITALS: Ht 188 cm; Wt 81.6 kg
[~2017-09-08 16:25] MED LIST changes: +METH-37 PO; +NAPR-683 PO; +TRAM-48 PO; +TRAM50TA PO
[2017-09-08 16:44] VITALS: BP 189/102
[2017-09-08] MEDS ORDERED: BENZ100C PO (16:51)
[2017-09-08] MEDS ORDERED: AZIT250T6 PO (16:51)
[2017-09-08] MEDS ORDERED: PRED20TA PO (16:51)
[2017-09-08] MEDS ORDERED: HYDR-971 PO (16:51)
--- NOTE | 2017-09-08 16:52 | PHYS DOC ---
Past Medical History Past Medical History: Asthma, Bronchitis, Depression, Hypertension Past Surgical History: Hysterectomy Additional Past Surgical Histo: fibroid removed with hysterectomy Alcohol Use: Occasionally Drug Use: None Adult General Chief Complaint Chief Complaint: FLU SYMPTOM HPI HPI Patient is a 47 year old female with a history of asthma presents the ED complaining of cough 8 days. Patient states she has been coughing up yellow sputum. States she has been using her inhaler at home. Associated symptoms include sore throat, subjective fever and rhinorrhea. Denies chest pain, shortness of breath, dizziness, body aches, weakness, nausea/vomiting, abdominal pain, or headache Review of Systems Review of Systems Constitutional: Complains of subjective fever. Denies chills [] Eyes: Denies change in visual acuity, redness, or eye pain [] HENT: Complains of rhinorrhea and sore throat.[] Respiratory: Complains of cough. Denies shortness of breath [] Cardiovascular: No additional information not addressed in HPI [] GI: Denies abdominal pain, vomiting, bloody stools or diarrhea [] : Denies dysuria or hematuria [] Musculoskeletal: Denies back pain or joint pain [] Integument: Denies rash or skin lesions [] Neurologic: Denies headache, focal weakness or sensory changes [] Endocrine: Denies polyuria or polydipsia [] All other systems were reviewed and found to be within normal limits, except as documented in this note. Allergies Allergies Allergies Coded Allergies Type Severity Reaction Last Updated Verified codeine Allergy Severe Anaphylaxis 10/27/13 Yes iopanoic acid Allergy Severe Anaphylaxis 10/27/13 Yes verapamil Allergy Severe waddell 04/12/16 Yes bacitracin Allergy Intermediate Rash 04/12/16 Yes bacitracin zinc Allergy Intermediate Rash 04/12/16 Yes levofloxacin Allergy Intermediate 04/12/16 Yes neomycin sulfate Allergy Intermediate Rash 04/12/16 Yes polymyxin B Allergy Intermediate Rash 04/12/16 Yes sulfamethoxazole Allergy Intermediate rash 04/12/16 Yes trimethoprim Allergy Intermediate rash 04/12/16 Yes aspirin Allergy Mild pt states "It causes my blood not to thin out" 04/12/16 Yes Physical Exam Physical Exam Constitutional: Well developed, well nourished, no acute distress, non-toxic appearance. [] HENT: Normocephalic, atraumatic, bilateral external ears normal, MILD PHARYNGEAL ERYTHEMA. Oropharynx moist, no oral exudates, nose normal. [] Eyes: PERRLA, EOMI, conjunctiva normal, no discharge. [] Neck: Normal range of motion, no tenderness, supple, no stridor. [] Cardiovascular:Heart rate regular rhythm, no murmur [] Lungs & Thorax: Bilateral breath sounds clear to auscultation [] Abdomen: Bowel sounds normal, soft, no tenderness, no masses, no pulsatile masses. [] Skin: Warm, dry, no erythema, no rash. [] Neurologic: Alert and oriented X 3, normal motor function, normal sensory function, no focal deficits noted. [] Psychologic: Affect normal, judgement normal, mood normal. [] Current Patient Data Vital Signs Vital Signs Date Time Temp Pulse Resp B/P (MAP) Pulse Ox O2 Delivery O2 Flow Rate FiO2 09/08/17 16:44 98.3 70 18 97 Room Air 98.3 EKG EKG [] Radiology/Procedures Radiology/Procedures [] Course & Med Decision Making Course & Med Decision Making Pertinent Labs and Imaging studies reviewed. (See chart for details) [] Dragon Disclaimer Dragon Disclaimer This electronic medical record was generated, in whole or in part, using a voice recognition dictation system. Departure Departure Impression: Primary Impression: Cough Disposition: 01 HOME, SELF-CARE Condition: IMPROVED Referrals: UNKNOWN PCP NAME (PCP) SANJANA SALDAÑA MD Patient Instructions: Acute Bronchitis Scripts Benzonatate (TESSALON PERLE) 100 Mg Capsule 1 CAP PO TID, #20 CAP Prov: HAYES BOLDEN 09/08/17 Hydrocodone/Apap 5-325 (NORCO 5-325 TABLET) 1 Each Tablet 1 TAB PO TID, #6 TAB Prov: HAYES BOLDEN 09/08/17 Prednisone (PREDNISONE) 20 Mg Tablet 2 TAB PO DAILY, #10 TAB Prov: HAYES BOLDEN 09/08/17 Azithromycin (AZITHROMYCIN TABLET) 250 Mg Tablet 1 PKG PO UD, #6 TAB Prov: HAYES BOLDEN 09/08/17 HAYES BOLDEN Sep 08, 2017 16:52
== END 2017-09-08 16:55 | disposition home or self-care (01) ==
LOC: ER 16:25
DX: R05 Cough (principal); J02.9 Acute pharyngitis, unspecified; R50.9 Fever, unspecified; J34.89 Other specified disorders of nose and nasal sinuses; J45.909 Unspecified asthma, uncomplicated; F32.9 Major depressive disorder, single episode, unspecified; I10 Essential (primary) hypertension; Z90.710 Acquired absence of both cervix and uterus; Z88.6 Allergy status to analgesic agent; Z88.1 Allergy status to other antibiotic agents; Z88.5 Allergy status to narcotic agent; Z88.2 Allergy status to sulfonamides; Z88.8 Allergy status to other drugs, medicaments and biological substances
CPT/HCPCS: 99283

== ENCOUNTER 2017-11-04 13:34 | Emergency (ER) | payer BC ==
[2017-11-04 13:59] LABS: ADD MAN DIFF? NO
[2017-11-04 14:03] LABS: BASO # 0.1 x10^3/uL (0.0-0.2); BASO % 1 % (0-3); EOS # 0.9 x10^3/uL (0.0-0.7); EOS % 11 % (0-3); HEMATOCRIT 40.6 % (36.0-47.0); HEMOGLOBIN 13.8 g/dL (12.0-15.5); LYMPH # 1.8 x10^3/uL (1.0-4.8); LYMPH % 21 % (24-48); MEAN CORPUSCULAR HEMOGLOBIN 32 pg (25-35); MEAN CORPUSCULAR HGB CONC 34 g/dL (31-37); MEAN CORPUSCULAR VOLUME 94 fL (79-100); MONO # 0.7 x10^3/uL (0.0-1.1); MONO % 8 % (0-9); NEUT # 5.1 x10^3uL (1.8-7.7); NEUT % 60 % (31-73); PLATELET COUNT 414 x10^3/uL (140-400); RED BLOOD COUNT 4.33 x10^6/uL (3.50-5.40); RED CELL DISTRIBUTION WIDTH 14.7 % (11.5-14.5); WHITE BLOOD COUNT 8.5 x10^3/uL (4.0-11.0)
[2017-11-04 14:13] LABS: ANION GAP 7 (6-14); BLOOD UREA NITROGEN 13 mg/dL (7-20); BUN/CREATININE RATIO 26 (6-20); CALCIUM 8.7 mg/dL (8.5-10.1); CARBON DIOXIDE 30 mmol/L (21-32); CHLORIDE 105 mmol/L (98-107); CREATININE 0.5 mg/dL (0.6-1.0); GFR 131.7; GLUCOSE 104 mg/dL (70-99); POTASSIUM 3.3 mmol/L (3.5-5.1); SODIUM 142 mmol/L (136-145)
[2017-11-04 14:18] LABS: D-DIMER 0.44 ug/mlFEU (0.00-0.50)
[2017-11-04 14:19] LABS: ALBUMIN 3.5 g/dL (3.4-5.0); ALBUMIN/GLOBULIN RATIO 1.2 (1.0-1.7); ALK PHOS 65 U/L (46-116); ALT (SGPT) 23 U/L (14-59); AST (SGOT) 20 U/L (15-37); TOTAL BILIRUBIN 0.3 mg/dL (0.2-1.0); TOTAL PROTEIN 6.5 g/dL (6.4-8.2)
[2017-11-04 14:20] LABS: TROPONINI < 0.017 ng/mL (0.000-0.055)
[2017-11-04 14:24] LABS: NT-PRO BNP 165 pg/mL (0-124)
== END 2017-11-04 15:50 | disposition left against medical advice (07) ==
LOC: ER 13:34
DX: J45.909 Unspecified asthma, uncomplicated (principal); R06.00 Dyspnea, unspecified; I10 Essential (primary) hypertension; Z88.2 Allergy status to sulfonamides; Z90.710 Acquired absence of both cervix and uterus; Z88.1 Allergy status to other antibiotic agents; Z88.5 Allergy status to narcotic agent; Z88.6 Allergy status to analgesic agent; Z88.8 Allergy status to other drugs, medicaments and biological substances
CPT/HCPCS: 36415; 71045; 80053; 83880; 84484; 85025; 85379; 93005; 99285-25